=== PATIENT | male | born 1980 | race American Indian/Alaskan Native ===

== ENCOUNTER 2020-05-12 21:17 | Emergency (ER) | payer SELFPAY ==
[2020-05-12 21:26] VITALS: BP 147/97
[2020-05-12] MEDS ORDERED: SODIUM CHLORIDE 0.9% 1000 ML 2,000 ML IV ONE (21:51)
[2020-05-12 23:59] LABS: Hematocrit 42.2 % (35.5-45.6); Hemoglobin 13.8 gm/dl (11.8-15.2); Mean Corpuscular HGB Conc 33 % (32-34); Mean Corpuscular Volume 85 fl (84-94); Platelet Count 286 K/mm3 (140-440); Red Blood Count 4.95 M/mm3 (3.65-5.03); Red Cell Distribution Width 14.2 % (13.2-15.2)
[2020-05-13 00:15] LABS: Alanine Aminotransferase 141 units/L (7-56); Albumin 4.3 g/dL (3.9-5); BUN/Creatinine Ratio 13; Blood Urea Nitrogen 16 mg/dL (9-20); Calcium 9.4 mg/dL (8.4-10.2); Hemolysis Index 7
[2020-05-13 05:06] LABS: Total Cells Counted 100
[2020-05-13 05:07] LABS: Platelet Estimate Consistent w Auto
[2020-05-13] MEDS ORDERED: INSULIN REGULAR, HUMAN 100 UNIT/ML 3ML VIAL IV ONE (09:40)
[2020-05-13] MEDS ORDERED: INSULIN REGULAR, HUMAN 100 UNIT/ML 3ML VIAL SUB-Q ONE (09:50)
--- NOTE | 2020-05-13 09:55 | Emergency Department Report ---
ED General Adult HPI - General Chief complaint: Hyperglycemia Stated complaint: FLUID RETENTION Time Seen by Provider: 05/13/20 09:39 Source: patient Mode of arrival: Ambulatory Limitations: No Limitations - History of Present Illness Initial comments: This is a 40-year-old type II diabetic who has been noncompliant with his insulin for at least a month and a half. He complains essentially of the polys. She is in no distress at the time of my evaluation. He does not complain of shortness of breath. He states that he has chronic leg edema. He does not take any other medications. He does not follow-up with a physician. He has not previously been on insulin. His only medicine prior was Metformin. Patient does have a history of hypertension but denies congestive heart failure or problems with his kidneys. He is not taking any medicine for his blood pressure now. -: Gradual, month(s) Location: back (Does complain of some intermittent lower back pain) Consistency: intermittent Improves with: none Worsens with: movement Associated Symptoms: other (Chronic leg edema) Treatments Prior to Arrival: none - Related Data Previous Rx's Medication Instructions Recorded Last Taken Type Lisinopril/Hydrochlorothiazide 1 each PO DAILY #30 tablet 05/13/20 Unknown Rx [Zestoretic 10-12.5 mg Tablet] Metformin HCl [metFORMIN] 1,000 mg PO BID #60 tablet 05/13/20 Unknown Rx Allergies Allergy/AdvReac Type Severity Reaction Status Date / Time No Known Allergies Allergy Verified 05/12/20 21:25 ED Review of Systems ROS: Stated complaint: FLUID RETENTION Other details as noted in HPI Constitutional: denies: chills, fever Eyes: denies: eye pain, eye discharge, vision change ENT: denies: ear pain, throat pain Respiratory: denies: cough, shortness of breath Cardiovascular: denies: chest pain, palpitations Endocrine: see HPI, increased hunger, increased thirst, increased urine Gastrointestinal: denies: abdominal pain, nausea, diarrhea Genitourinary: denies: urgency, dysuria Musculoskeletal: other (Leg edema). denies: back pain, joint swelling, arthralgia Skin: denies: rash, lesions Neurological: denies: headache, weakness, paresthesias Psychiatric: denies: anxiety, depression Hematological/Lymphatic: denies: easy bleeding, easy bruising ED Past Medical Hx - Past Medical History Previous Medical History?: Yes Hx Hypertension: Yes Hx Diabetes: Yes - Surgical History Past Surgical History?: Yes Hx Appendectomy: Yes - Social History Smoking Status: Former Smoker Substance Use Type: None - Medications Home Medications: Home Medications Medication Instructions Recorded Confirmed Last Taken Type Lisinopril/Hydrochlorothiazide 1 each PO DAILY #30 tablet 05/13/20 Unknown Rx [Zestoretic 10-12.5 mg Tablet] Metformin HCl [metFORMIN] 1,000 mg PO BID #60 tablet 05/13/20 Unknown Rx ED Physical Exam - General Limitations: No Limitations General appearance: alert, in no apparent distress - Head Head exam: Present: atraumatic, normocephalic - Eye Eye exam: Present: normal appearance. Absent: scleral icterus - ENT ENT exam: Present: mucous membranes moist - Neck Neck exam: Present: normal inspection - Respiratory Respiratory exam: Present: normal lung sounds bilaterally. Absent: respiratory distress - Cardiovascular Cardiovascular Exam: Present: regular rate, normal rhythm. Absent: systolic murmur, diastolic murmur, rubs, gallop - GI/Abdominal GI/Abdominal exam: Present: soft, normal bowel sounds. Absent: distended, tenderness, guarding, rebound, rigid - Rectal Rectal exam: Present: deferred - Extremities Exam Extremities exam: Present: other (1-2+ pitting pretibial Edema bilaterally). Absent: calf tenderness - Back Exam Back exam: Present: normal inspection - Neurological Exam Neurological exam: Present: alert, oriented X3, CN II-XII intact. Absent: motor sensory deficit - Psychiatric Psychiatric exam: Present: normal affect, normal mood - Skin Skin exam: Present: warm, dry, intact, normal color. Absent: rash ED Course Vital Signs 05/12/20 21:21 Temperature 98.7 F Pulse Rate 97 H Respiratory 18 Rate Blood Pressure 147/97 O2 Sat by Pulse 100 Oximetry - Reevaluation(s) Reevaluation #1: Going to give the patient subcu insulin. I am going to restart his Metformin and place him on a small dose of lisinopril HCTZ. 05/13/20 09:55 Reevaluation #2: We will Accu-Chek the patient and follow his vital signs. He already has substantial leg edema and I do not think he really would benefit from saline bolus at this point. 05/13/20 09:55 ED Medical Decision Making - Lab Data Result diagrams: 05/12/20 23:25 05/12/20 23:25 Laboratory Results - last 24 hr 05/12/20 05/12/20 05/12/20 21:27 23:25 23:25 WBC 12.5 H RBC 4.95 Hgb 13.8 Hct 42.2 MCV 85 MCH 28 MCHC 33 RDW 14.2 Plt Count 286 Lymph # (Auto) Fugitive Detective Add Manual Diff Complete Total Counted 100 Seg Neuts % (Manual) 49.0 Lymphocytes % (Manual) 41.0 H Monocytes % (Manual) 7.0 Eosinophils % (Manual) 3.0 Nucleated RBC % Not Reportable Seg Neutrophils # Man 6.1 Band Neutrophils # 0.0 Lymphocytes # (Manual) 5.1 Abs React Lymphs (Man) 0.0 Monocytes # (Manual) 0.9 H Eosinophils # (Manual) 0.4 Basophils # (Manual) 0.0 Metamyelocytes # 0.0 Myelocytes # 0.0 Promyelocytes # 0.0 Blast Cells # 0.0 WBC Morphology Not Reportable Hypersegmented Neuts Not Reportable Hyposegmented Neuts Not Reportable Hypogranular Neuts Not Reportable Smudge Cells Not Reportable Toxic Granulation Not Reportable Toxic Vacuolation Not Reportable Dohle Bodies Not Reportable Pelger-Huet Anomaly Not Reportable Vick Rods Not Reportable Platelet Estimate Consistent w auto Clumped Platelets Not Reportable Plt Clumps, EDTA Not Reportable Large Platelets Not Reportable Giant Platelets Not Reportable Platelet Satelliting Not Reportable Plt Morphology Comment Not Reportable RBC Morphology Not Reportable Dimorphic RBCs Not Reportable Polychromasia Not Reportable Hypochromasia Not Reportable Poikilocytosis Not Reportable Anisocytosis Not Reportable Microcytosis Not Reportable Macrocytosis Not Reportable Spherocytes Not Reportable Pappenheimer Bodies Not Reportable Sickle Cells Not Reportable Target Cells Not Reportable Tear Drop Cells Not Reportable Ovalocytes Not Reportable Helmet Cells Not Reportable Meléndez-[place] Bodies Not Reportable [place] Rings Not Reportable [place] Cells Not Reportable Bite Cells Not Reportable Crenated Cell Not Reportable Elliptocytes Not Reportable Acanthocytes (Spur) Not Reportable Rouleaux Not Reportable Hemoglobin C Crystals Not Reportable Schistocytes Not Reportable Malaria parasites Not Reportable Adam Bodies Not Reportable Hem Pathologist Commnt No VBG pH Sodium 129 L Potassium 4.9 Chloride 93.0 L Carbon Dioxide 26 Anion Gap 15 BUN 16 Creatinine 1.2 Estimated GFR > 60 BUN/Creatinine Ratio 13 Glucose 603 H* POC Glucose 551 H Calcium 9.4 Phosphorus Magnesium Total Bilirubin 0.40 AST 126 H ALT 141 H Alkaline Phosphatase 113 Total Protein 7.5 Albumin 4.3 Albumin/Globulin Ratio 1.3 05/12/20 05/12/20 23:25 23:25 WBC RBC Hgb Hct MCV MCH MCHC RDW Plt Count Lymph # (Auto) Add Manual Diff Total Counted Seg Neuts % (Manual) Lymphocytes % (Manual) Monocytes % (Manual) Eosinophils % (Manual) Nucleated RBC % Seg Neutrophils # Man Band Neutrophils # Lymphocytes # (Manual) Abs React Lymphs (Man) Monocytes # (Manual) Eosinophils # (Manual) Basophils # (Manual) Metamyelocytes # Myelocytes # Promyelocytes # Blast Cells # WBC Morphology Hypersegmented Neuts Hyposegmented Neuts Hypogranular Neuts Smudge Cells Toxic Granulation Toxic Vacuolation Dohle Bodies Pelger-Huet Anomaly Vick Rods Platelet Estimate Clumped Platelets Plt Clumps, EDTA Large Platelets Giant Platelets Platelet Satelliting Plt Morphology Comment RBC Morphology Dimorphic RBCs Polychromasia Hypochromasia Poikilocytosis Anisocytosis Microcytosis Macrocytosis Spherocytes Pappenheimer Bodies Sickle Cells Target Cells Tear Drop Cells Ovalocytes Helmet Cells Meléndez-[place] Bodies [place] Rings [place] Cells Bite Cells Crenated Cell Elliptocytes Acanthocytes (Spur) Rouleaux Hemoglobin C Crystals Schistocytes Malaria parasites Adam Bodies Hem Pathologist Commnt VBG pH 7.353 Sodium Potassium Chloride Carbon Dioxide Anion Gap BUN Creatinine Estimated GFR BUN/Creatinine Ratio Glucose POC Glucose Calcium Phosphorus 4.20 Magnesium 1.90 Total Bilirubin AST ALT Alkaline Phosphatase Total Protein Albumin Albumin/Globulin Ratio Critical care attestation.: If time is entered above; I have spent that time in minutes in the direct care of this critically ill patient, excluding procedure time. ED Disposition Clinical Impression: Essential hypertension Hyperglycemia due to type 2 diabetes mellitus Qualifiers: Diabetes mellitus long-term insulin use: without parts counterman use Qualified Code(s): E11.65 - Type 2 diabetes mellitus with hyperglycemia Disposition: DC TO HOME OR SELFCARE Is pt being admited?: No Does the pt Need Aspirin: No Condition: Stable Instructions: Diabetes Mellitus Type 2 in Adults (ED), Hypertension (ED) Additional Instructions: Diabetic diet. Medicine for blood pressure and increase fluids. Your blood pressure will require monitoring at the clinic I have referred you to as well as further care and treatment of your diabetes. Rx Metformin and lisinopril HCTZ Prescriptions: Metformin HCl [metFORMIN] 1,000 mg PO BID #60 tablet Lisinopril/Hydrochlorothiazide [Zestoretic 10-12.5 mg Tablet] 1 each PO DAILY #30 tablet Referrals: PRIMARY CARE, [Primary Care Provider] - 3-5 Days [facility] [Provider Group] - 2-3 Days Time of Disposition: 09:56
[2020-05-13] MEDS ORDERED: INSULIN REGULAR, HUMAN 100 UNITS/1 ML ONE (10:00)
== END 2020-05-13 13:30 | disposition home or self-care (01) ==
LOC: ED 21:17
DX: I10 Essential (primary) hypertension (principal); E11.65 Type 2 diabetes mellitus with hyperglycemia; Z90.49 Acquired absence of other specified parts of digestive tract; Z87.891 Personal history of nicotine dependence; Z79.899 Other long term (current) drug therapy
CPT/HCPCS: 36415; 80053; 82805; 82962; 83735; 84100; 85007; 85025; 96372; J1815

== ENCOUNTER 2020-08-29 18:35 | Emergency (ER) | payer SELFPAY ==
[2020-08-29 20:31] VITALS: BP 122/89
[2020-08-29 21:30] LABS: Hematocrit 44.6 % (35.5-45.6); Hemoglobin 14.5 gm/dl (11.8-15.2); Mean Corpuscular HGB Conc 33 % (32-34); Mean Corpuscular Volume 84 fl (84-94); Platelet Count 275 K/mm3 (140-440); Red Blood Count 5.29 M/mm3 (3.65-5.03); Red Cell Distribution Width 14.3 % (13.2-15.2)
[2020-08-29 21:53] LABS: Alanine Aminotransferase 85 units/L (7-56); Albumin 3.9 g/dL (3.9-5); BUN/Creatinine Ratio 8; Blood Urea Nitrogen 7 mg/dL (9-20); Calcium 8.7 mg/dL (8.4-10.2); Hemolysis Index 8
[2020-08-29] MEDS ORDERED: SODIUM CHLORIDE 0.9% 1000 ML 1,000 ML IV ONE (22:00)
[2020-08-29 22:20] LABS: Total Cells Counted 100
[2020-08-29 22:21] LABS: Platelet Estimate Consistent w Auto
[2020-08-30] MEDS ORDERED: SODIUM CHLORIDE 0.9% 1000 ML 1,000 ML IV ONE (04:33)
[2020-08-30 04:54] LABS: Bilirubin,Urine NEG (Negative); Blood,Urine NEG (Negative); Color,Urine Yellow (Yellow)
--- NOTE | 2020-08-30 05:25 | Emergency Department Report ---
ED General Adult HPI - General Chief complaint: Urogenital-Male Stated complaint: CONSTANT URINATION/PAIN Time Seen by Provider: 08/29/20 20:58 Source: patient Mode of arrival: Ambulatory Limitations: No Limitations - History of Present Illness Initial comments: Patient 40-year-old -Romanian male with a history of diabetes type 2 and hypertension. Patient presents with dysuria x3 days, patient denies penile discharge no fevers no chills no nausea vomiting. Patient does endorse nonadherence to diabetes treatment. Diabetes controlled with Metformin 1000 mg p.o. twice daily patient states he did take 1 dose prior to coming to ED. Patient denies polys. Accu-Chek on arrival to ED was 489 mg/dL ,Pt denies other symptoms - Related Data Previous Rx's Medication Instructions Recorded Last Taken Type Lisinopril/Hydrochlorothiazide 1 each PO DAILY #30 tablet 05/13/20 Unknown Rx [Zestoretic 10-12.5 mg Tablet] Metformin HCl [metFORMIN] 1,000 mg PO BID #60 tablet 05/13/20 Unknown Rx Metformin HCl [metFORMIN] 1,000 mg PO BID #60 tablet 08/30/20 Unknown Rx cephALEXin [Keflex] 500 mg PO BID 7 Days #14 cap 08/30/20 Unknown Rx Allergies Allergy/AdvReac Type Severity Reaction Status Date / Time No Known Allergies Allergy Verified 05/12/20 21:25 ED Review of Systems ROS: Stated complaint: CONSTANT URINATION/PAIN Other details as noted in HPI Constitutional: denies: chills, fever Eyes: denies: eye pain, eye discharge, vision change ENT: denies: ear pain, throat pain Respiratory: denies: cough, shortness of breath, wheezing Cardiovascular: denies: chest pain, palpitations Endocrine: no symptoms reported Gastrointestinal: denies: abdominal pain, nausea, diarrhea Genitourinary: urgency, dysuria. denies: frequency, hematuria, discharge, testicular pain, testicular mass Musculoskeletal: denies: back pain, joint swelling, arthralgia Skin: denies: rash, lesions Neurological: denies: headache, weakness, paresthesias Psychiatric: denies: anxiety, depression Hematological/Lymphatic: denies: easy bleeding, easy bruising ED Past Medical Hx - Past Medical History Previous Medical History?: Yes Hx Hypertension: Yes Hx Diabetes: Yes - Surgical History Past Surgical History?: Yes Hx Appendectomy: Yes - Social History Smoking Status: Current Every Day Smoker Substance Use Type: None - Medications Home Medications: Home Medications Medication Instructions Recorded Confirmed Last Taken Type Lisinopril/Hydrochlorothiazide 1 each PO DAILY #30 tablet 05/13/20 Unknown Rx [Zestoretic 10-12.5 mg Tablet] Metformin HCl [metFORMIN] 1,000 mg PO BID #60 tablet 05/13/20 Unknown Rx Metformin HCl [metFORMIN] 1,000 mg PO BID #60 tablet 08/30/20 Unknown Rx cephALEXin [Keflex] 500 mg PO BID 7 Days #14 cap 08/30/20 Unknown Rx ED Physical Exam - General Limitations: No Limitations General appearance: alert, in no apparent distress - Head Head exam: Present: atraumatic, normocephalic - Eye Eye exam: Present: normal appearance, EOMI Pupils: Present: normal accommodation - ENT ENT exam: Present: mucous membranes moist - Neck Neck exam: Present: normal inspection, full ROM. Absent: tenderness - Respiratory Respiratory exam: Present: normal lung sounds bilaterally. Absent: respiratory distress, wheezes - Cardiovascular Cardiovascular Exam: Present: regular rate, normal rhythm, normal heart sounds. Absent: systolic murmur, diastolic murmur, rubs, gallop - GI/Abdominal GI/Abdominal exam: Present: soft, normal bowel sounds. Absent: distended, tenderness - Rectal Rectal exam: Present: deferred - Extremities Exam Extremities exam: Present: normal inspection, full ROM - Back Exam Back exam: Present: normal inspection, full ROM. Absent: tenderness, CVA t enderness (R), CVA tenderness (L) - Neurological Exam Neurological exam: Present: alert, oriented X3, CN II-XII intact, normal gait - Expanded Neurological Exam Expanded Patient oriented to: Present: person, place, time Speech: Present: fluid speech Best Eye Response (Demario): (4) open spontaneously Best Motor Response ([place]): (6) obeys commands Best Verbal Response ([place]): (5) oriented Demario Total: 15 - Psychiatric Psychiatric exam: Present: normal affect, normal mood - Skin Skin exam: Present: warm, dry, intact, normal color. Absent: rash ED Course Vital Signs 08/29/20 20:29 Temperature 98.3 F Pulse Rate 87 Respiratory 20 Rate Blood Pressure 122/89 O2 Sat by Pulse 99 Oximetry ED Medical Decision Making - Lab Data Result diagrams: 08/29/20 21:18 08/29/20 21:18 Labs 08/29/20 08/29/20 08/30/20 21:18 21:18 Unknown WBC 15.0 H RBC 5.29 H Hgb 14.5 Hct 44.6 MCV 84 MCH 27 L MCHC 33 RDW 14.3 Plt Count 275 Lymph # (Auto) Shop Worker Add Manual Diff Complete Total Counted 100 Seg Neuts % (Manual) 48.0 Lymphocytes % (Manual) 43.0 H Monocytes % (Manual) 4.0 Eosinophils % (Manual) 5.0 H Nucleated RBC % Not Reportable Seg Neutrophils # Man 7.2 Band Neutrophils # 0.0 Lymphocytes # (Manual) 6.5 H Abs React Lymphs (Man) 0.0 Monocytes # (Manual) 0.6 Eosinophils # (Manual) 0.8 H Basophils # (Manual) 0.0 Metamyelocytes # 0.0 Myelocytes # 0.0 Promyelocytes # 0.0 Blast Cells # 0.0 WBC Morphology Not Reportable Hypersegmented Neuts Not Reportable Hyposegmented Neuts Not Reportable Hypogranular Neuts Not Reportable Smudge Cells Not Reportable Toxic Granulation Not Reportable Toxic Vacuolation Not Reportable Dohle Bodies Not Reportable Pelger-Huet Anomaly Not Reportable Vick Rods Not Reportable Platelet Estimate Consistent w auto Clumped Platelets Not Reportable Plt Clumps, EDTA Not Reportable Large Platelets Not Reportable Giant Platelets Not Reportable Platelet Satelliting Not Reportable Plt Morphology Comment Not Reportable RBC Morphology Not Reportable Dimorphic RBCs Not Reportable Polychromasia Not Reportable Hypochromasia Not Reportable Poikilocytosis Not Reportable Anisocytosis Not Reportable Microcytosis Not Reportable Macrocytosis Not Reportable Spherocytes Not Reportable Pappenheimer Bodies Not Reportable Sickle Cells Not Reportable Target Cells Not Reportable Tear Drop Cells Not Reportable Ovalocytes Not Reportable Helmet Cells Not Reportable Meléndez-[place] Bodies Not Reportable [place] Rings Not Reportable [place] Cells Not Reportable Bite Cells Not Reportable Crenated Cell Not Reportable Elliptocytes Not Reportable Acanthocytes (Spur) Not Reportable Rouleaux Not Reportable Hemoglobin C Crystals Not Reportable Schistocytes Not Reportable Malaria parasites Not Reportable Adam Bodies Not Reportable Hem Pathologist Commnt No Sodium 132 L Potassium 4.2 Chloride 94.1 L Carbon Dioxide 23 Anion Gap 19 BUN 7 L Creatinine 0.9 Estimated GFR > 60 BUN/Creatinine Ratio 8 Glucose 496 H Calcium 8.7 Total Bilirubin 0.40 AST 71 H ALT 85 H Alkaline Phosphatase 113 Total Protein 7.6 Albumin 3.9 Albumin/Globulin Ratio 1.1 Urine Color Yellow Urine Turbidity Clear Urine pH 5.0 Ur Specific Palmer 1.032 H Urine Protein 30 mg/dl Urine Glucose (UA) >=500 Urine Ketones Neg Urine Blood Neg Urine Nitrite Neg Urine Bilirubin Neg Urine Urobilinogen 2.0 Ur Leukocyte Esterase Neg Urine WBC (Auto) 1.0 Urine RBC (Auto) 2.0 U Epithel Cells (Auto) < 1.0 - Medical Decision Making Patient hydrated with normal saline 1 L in ED, UA normal no ketones noted. Patient advised to take Metformin as prescribed. Follow-up with PCP in 1 to 2 days. Patient is currently alert oriented x3 amatory with steady gait with no acute distress. Critical care attestation.: If time is entered above; I have spent that time in minutes in the direct care of this critically ill patient, excluding procedure time. ED Disposition Clinical Impression: Hyperglycemia Diabetes type 2, uncontrolled Qualifiers: Glycemic state: with hyperglycemia Qualified Code(s): E11.65 - Type 2 diabetes mellitus with hyperglycemia Disposition: DC-01 TO HOME OR SELFCARE Is pt being admited?: No Does the pt Need Aspirin: No Condition: Stable Instructions: Type 2 Diabetes Mellitus, Diagnosis, Adult, Diabetes Mellitus and Nutrition, Adult, Diabetes Mellitus Type 2 in Adults (ED) Additional Instructions: take medications as prescribed, return to emergency if symptoms worsen. Prescriptions: cephALEXin [Keflex] 500 mg PO BID 7 Days #14 cap Metformin HCl [metFORMIN] 1,000 mg PO BID #60 tablet Referrals: [facility] [Provider Group] - 3-5 Days Forms: Work/School Release Form(ED) Time of Disposition: 06:16
== END 2020-08-30 06:41 | disposition home or self-care (01) ==
LOC: ED 18:35
DX: E11.65 Type 2 diabetes mellitus with hyperglycemia (principal); I10 Essential (primary) hypertension; F17.200 Nicotine dependence, unspecified, uncomplicated; Z90.49 Acquired absence of other specified parts of digestive tract; Z79.899 Other long term (current) drug therapy
CPT/HCPCS: 36415; 80053; 81001; 82962; 85007; 85025; 96360; 99283; J7030

== ENCOUNTER 2020-12-03 20:08 | Emergency (ER) | payer SELFPAY ==
[2020-12-03 22:32] VITALS: BP 177/103
--- NOTE | 2020-12-03 23:26 | Emergency Department Report ---
ED General Adult HPI - General Chief complaint: Urogenital-Male Stated complaint: FREQUENT URINATION/OUT OF DIABETES MEDICATION Source: patient Mode of arrival: Ambulatory Limitations: No Limitations - History of Present Illness Initial comments: Patient is a 40-year-old -[place]ian male with a history of morbid obesity, pbh-ljgtrjg-eqzdlxapn diabetes and hypertension who presents to the ED complaining of persistent polyuria and polydipsia and elevated blood sugar for the last 2 weeks after he ran out of his medications. Patient states that he has been taking Metformin at 1000 mg twice a day and amlodipine 10 mg daily but ran out of these medications about 2 weeks ago. Patient denies dizziness, syncope, chest pain, shortness of breath, nausea, vomiting, diarrhea, abdominal pain, headache, fever, chills, cough, hematuria, testicular pain, dysuria, back pain, lightheadedness or seizures. MD Complaint: Diabetic, ran out of his medications; polyuria and polydipsia -: Sudden, week(s) (2) Radiation: non-radiation Severity scale (0 -10): 0 Quality: dull Consistency: intermittent Improves with: none Worsens with: none Associated Symptoms: denies other symptoms. denies: confusion, chest pain, cough, diaphoresis, fever/chills, headaches, loss of appetite, malaise, nausea/vomiting, rash, seizure, shortness of breath, syncope, weakness, other Treatments Prior to Arrival: none - Related Data Previous Rx's Medication Instructions Recorded Last Taken Type Lisinopril/Hydrochlorothiazide 1 each PO DAILY #30 tablet 05/13/20 Unknown Rx [Zestoretic 10-12.5 mg Tablet] Metformin HCl [metFORMIN] 1,000 mg PO BID #60 tablet 08/30/20 Unknown Rx cephALEXin [Keflex] 500 mg PO BID 7 Days #14 cap 08/30/20 Unknown Rx Metformin HCl [metFORMIN] 1,000 mg PO BID #60 tablet 12/03/20 Unknown Rx amLODIPine 10 mg PO DAILY #30 tab 12/03/20 Unknown Rx Allergies Allergy/AdvReac Type Severity Reaction Status Date / Time No Known Allergies Allergy Verified 05/12/20 21:25 ED Review of Systems ROS: Stated complaint: FREQUENT URINATION/OUT OF DIABETES MEDICATION Other details as noted in HPI Constitutional: denies: chills, fever Eyes: denies: eye pain, eye discharge, vision change ENT: denies: ear pain, throat pain Respiratory: denies: cough, shortness of breath, wheezing Cardiovascular: denies: chest pain, palpitations Endocrine: no symptoms reported, increased thirst, increased urine Gastrointestinal: denies: abdominal pain, nausea, diarrhea Genitourinary: frequency, other (Polyuria). denies: urgency, dysuria Musculoskeletal: denies: back pain, joint swelling, arthralgia Skin: denies: rash, lesions Neurological: denies: headache, weakness, paresthesias Psychiatric: denies: anxiety, depression Hematological/Lymphatic: denies: easy bleeding, easy bruising ED Past Medical Hx - Past Medical History Previous Medical History?: Yes Hx Hypertension: Yes Hx Diabetes: Yes - Surgical History Past Surgical History?: Yes Hx Appendectomy: Yes - Social History Smoking Status: Current Every Day Smoker Substance Use Type: None - Medications Home Medications: Home Medications Medication Instructions Recorded Confirmed Last Taken Type Lisinopril/Hydrochlorothiazide 1 each PO DAILY #30 tablet 05/13/20 Unknown Rx [Zestoretic 10-12.5 mg Tablet] Metformin HCl [metFORMIN] 1,000 mg PO BID #60 tablet 08/30/20 Unknown Rx cephALEXin [Keflex] 500 mg PO BID 7 Days #14 cap 08/30/20 Unknown Rx Metformin HCl [metFORMIN] 1,000 mg PO BID #60 tablet 12/03/20 Unknown Rx amLODIPine 10 mg PO DAILY #30 tab 12/03/20 Unknown Rx ED Physical Exam - General Limitations: No Limitations General appearance: alert, in no apparent distress - Head Head exam: Present: atraumatic, normocephalic, normal inspection - Eye Eye exam: Present: normal appearance, PERRL, EOMI Pupils: Present: normal accommodation - ENT ENT exam: Present: normal exam, normal orophraynx, mucous membranes moist, TM's normal bilaterally, normal external ear exam - Neck Neck exam: Present: normal inspection, full ROM - Respiratory Respiratory exam: Present: normal lung sounds bilaterally. Absent: respiratory distress, wheezes, rales, rhonchi, stridor, chest wall tenderness, accessory muscle use, decreased breath sounds, prolonged expiratory - Cardiovascular Cardiovascular Exam: Present: regular rate, normal rhythm, normal heart sounds. Absent: systolic murmur, diastolic murmur, rubs, gallop - GI/Abdominal GI/Abdominal exam: Present: soft, normal bowel sounds. Absent: tenderness, guarding, rebound, hyperactive bowel sounds, hypoactive bowel sounds, organomegaly, mass - Extremities Exam Extremities exam: Present: normal inspection, full ROM, normal capillary refill - Back Exam Back exam: Present: normal inspection, full ROM. Absent: tenderness, CVA tenderness (R), CVA tenderness (L), muscle spasm, paraspinal tenderness, vertebral tenderness - Neurological Exam Neurological exam: Present: alert, oriented X3, CN II-XII intact, normal gait, reflexes normal - Psychiatric Psychiatric exam: Present: normal affect, normal mood, anxious - Skin Skin exam: Present: warm, dry, intact, normal color. Absent: rash ED Course Vital Signs 12/03/20 21:24 Temperature 99.5 F Pulse Rate 83 Respiratory 18 Rate Blood Pressure 177/103 O2 Sat by Pulse 95 Oximetry ED Medical Decision Making - Medical Decision Making This is a 40-year-old -[place] male with a history of morbid obesity, hre-qfaascj-xhevktfdm diabetes and hypertension who presents to the ED com plaining of persistent polyuria and polydipsia and elevated blood sugar for the last 2 weeks after he ran out of his medications. Patient states that he has been taking Metformin at 1000 mg twice a day and amlodipine 10 mg daily but ran out of these medications about 2 weeks ago. In the ED, patient is alert and oriented x3 and is not in distress. Patient ltcyz-et-mrhe blood glucose was 114 mg/dL. Patient was discharged home with a refill of his prescription medications of amlodipine 10 mg daily and Metformin 1000 mg twice a day and was advised to follow-up with his primary care physician in 7 to 10 days for reevaluation. Patient was advised return to the ED immediately if symptoms get worse. - Differential Diagnosis Type 2 diabetes, hypertension, anxiety, Critical care attestation.: If time is entered above; I have spent that time in minutes in the direct care of this critically ill patient, excluding procedure time. ED Disposition Clinical Impression: Uncontrolled stage 2 hypertension, Encounter for medication refill Type 2 diabetes mellitus Qualifiers: Diabetes mellitus mcfp insulin use: without mcfp use Diabetes mellitus complication status: without complication Qualified Code(s): E11.9 - Type 2 diabetes mellitus without complications Disposition: - TO HOME OR SELFCARE Is pt being admited?: No Does the pt Need Aspirin: No Condition: Stable Instructions: Hypertension (ED), Diabetes Mellitus Type 2 in Adults (ED), Type 2 Diabetes Mellitus, Self Care, Adult, [id number], Hypertension, Adult, Okao-vz-Khtj Additional Instructions: Take medications with food, drink plenty of fluids and follow-up with your primary care physician in 7 to 10 days for reevaluation. Return to the ED immediately if symptoms get worse. Prescriptions: amLODIPine 10 mg PO DAILY #30 tab Metformin HCl [metFORMIN] 1,000 mg PO BID #60 tablet Referrals: [facility] [Provider Group] - 7-10 days Time of Disposition: 23:28 Print Language: DIVEHI
== END 2020-12-03 23:40 | disposition home or self-care (01) ==
LOC: ED 20:08
DX: E11.65 Type 2 diabetes mellitus with hyperglycemia (principal); I10 Essential (primary) hypertension; F17.200 Nicotine dependence, unspecified, uncomplicated
CPT/HCPCS: 82962; 99282

== ENCOUNTER 2021-06-30 20:25 | Emergency (ER) | payer SELFPAY ==
[2021-06-30 22:25] VITALS: BP 167/97
--- NOTE | 2021-07-01 01:30 | Emergency Department Report ---
ED General Adult HPI - General Chief complaint: Medical Clearance Stated complaint: OUT OF MEDICINE Source: patient Mode of arrival: Ambulatory Limitations: No Limitations - History of Present Illness Initial comments: Patient is a 41-year-old -Mac[place] male with a history of hypertension and fip-ovxhgse-mszkezyhu diabetes who presents to the ED for medication refill of his blood pressure medications and diabetes medications. Patient states that he ran out of his medications about a week ago and has not taken any medications for his diabetes and blood pressure. Patient denies chest pain, shortness of breath, dizziness, syncope, fever and chills, abdominal pain, palpitations, headache or back pain. MD Complaint: MEDICATION REFILL -: Sudden, week(s) (1) Severity scale (0 -10): 0 Consistency: constant Improves with: none Worsens with: none Associated Symptoms: denies other symptoms. denies: confusion, chest pain, cough, diaphoresis, fever/chills, headaches, loss of appetite, malaise, nausea/vomiting, rash, seizure, shortness of breath, syncope, other Treatments Prior to Arrival: none - Related Data Previous Rx's Medication Instructions Recorded Last Taken Type Lisinopril/Hydrochlorothiazide 1 each PO DAILY #30 tablet 05/13/20 Unknown Rx [Zestoretic 10-12.5 mg Tablet] cephALEXin [Keflex] 500 mg PO BID 7 Days #14 cap 08/30/20 Unknown Rx Metformin HCl [metFORMIN] 1,000 mg PO BID #60 tablet 12/03/20 Unknown Rx Metformin HCl [metFORMIN] 1,000 mg PO BID #60 tablet 07/01/21 Unknown Rx amLODIPine 10 mg PO DAILY #30 tab 07/01/21 Unknown Rx Allergies Allergy/AdvReac Type Severity Reaction Status Date / Time No Known Allergies Allergy Verified 05/12/20 21:25 ED Review of Systems ROS: Stated complaint: OUT OF MEDICINE Other details as noted in HPI Constitutional: denies: chills, fever Eyes: denies: eye pain, eye discharge, vision change ENT: denies: ear pain, throat pain Respiratory: denies: cough, shortness of breath, wheezing Cardiovascular: denies: chest pain, palpitations Endocrine: no symptoms reported Gastrointestinal: denies: abdominal pain, nausea, vomiting, diarrhea Genitourinary: denies: urgency, dysuria Musculoskeletal: denies: back pain, joint swelling, arthralgia Skin: denies: rash, lesions Neurological: denies: headache, weakness, paresthesias Psychiatric: denies: anxiety, depression Hematological/Lymphatic: denies: easy bleeding, easy bruising ED Past Medical Hx - Past Medical History Previous Medical History?: Yes Hx Hypertension: Yes Hx Diabetes: Yes - Surgical History Past Surgical History?: Yes Hx Appendectomy: Yes - Social History Smoking Status: Current Every Day Smoker Substance Use Type: None - Medications Home Medications: Home Medications Medication Instructions Recorded Confirmed Last Taken Type Lisinopril/Hydrochlorothiazide 1 each PO DAILY #30 tablet 05/13/20 Unknown Rx [Zestoretic 10-12.5 mg Tablet] cephALEXin [Keflex] 500 mg PO BID 7 Days #14 cap 08/30/20 Unknown Rx Metformin HCl [metFORMIN] 1,000 mg PO BID #60 tablet 12/03/20 Unknown Rx Metformin HCl [metFORMIN] 1,000 mg PO BID #60 tablet 07/01/21 Unknown Rx amLODIPine 10 mg PO DAILY #30 tab 07/01/21 Unknown Rx ED Physical Exam - General Limitations: No Limitations General appearance: alert, in no apparent distress - Head Head exam: Present: atraumatic, normocephalic, normal inspection - Eye Eye exam: Present: normal appearance, PERRL, EOMI Pupils: Present: normal accommodation - ENT ENT exam: Present: normal exam, normal orophraynx, mucous membranes moist, TM's normal bilaterally, normal external ear exam - Neck Neck exam: Present: normal inspection, full ROM. Absent: tenderness - Respiratory Respiratory exam: Present: normal lung sounds bilaterally. Absent: respiratory distress, wheezes, rales, rhonchi, chest wall tenderness, accessory muscle use, decreased breath sounds - Cardiovascular Cardiovascular Exam: Present: regular rate, normal rhythm, normal heart sounds. Absent: systolic murmur, diastolic murmur, rubs, gallop - GI/Abdominal GI/Abdominal exam: Present: soft, normal bowel sounds. Absent: tenderness, guarding, rebound, hyperactive bowel sounds, hypoactive bowel sounds, organomegaly - Extremities Exam Extremities exam: Present: normal inspection, full ROM, normal capillary refill. Absent: tenderness - Back Exam Back exam: Present: normal inspection, full ROM. Absent: tenderness, CVA tenderness (R), muscle spasm, paraspinal tenderness, vertebral tenderness - Neurological Exam Neurological exam: Present: alert, oriented X3, CN II-XII intact, normal gait, reflexes normal - Psychiatric Psychiatric exam: Present: normal affect, normal mood, anxious - Skin Skin exam: Present: warm, dry, intact, normal color. Absent: rash ED Course Vital Signs 06/30/21 22:19 Temperature 98.5 F Pulse Rate 95 H Respiratory 18 Rate Blood Pressure 167/97 [Right] O2 Sat by Pulse 100 Oximetry ED Medical Decision Making - Medical Decision Making This is a 41-year-old -[place] male with a history of hypertension and gpm-sbsaibf-qmkitntxi diabetes who presents to the ED for medication refill of his blood pressure medications and diabetes medications. Patient states that he ran out of his medications about a week ago and has not taken any medications for his diabetes and blood pressure. In the ED, patient is alert and oriented x3 and is not in any distress. Patient was discharged home with a prescription of his Metformin and amlodipine. Patient was advised to follow-up with his primary care physician in 5 to 7 days for reevaluation or return to the ED immediately if symptoms get worse. - Differential Diagnosis Medication refill; anxiety; Critical care attestation.: If time is entered above; I have spent that time in minutes in the direct care of this critically ill patient, excluding procedure time. ED Disposition Clinical Impression: Uncontrolled stage 2 hypertension, Encounter for medication refill Disposition: HOME / SELF CARE / HOMELESS Is pt being admited?: No Does the pt Need Aspirin: No Condition: Stable Instructions: Hypertension (ED), Hypertension, Adult, Yaze-bk-Xima Additional Instructions: Take medication with food, drink plenty of fluids and follow-up with your primary care physician in 7 to 10 days for reevaluation. Return to the ED immediately if symptoms get worse. Prescriptions: amLODIPine 10 mg PO DAILY #30 tab Metformin HCl [metFORMIN] 1,000 mg PO BID #60 tablet Referrals: [facility] [Provider Group] - 7-10 days Time of Disposition: 01:30 Print Language: LIBERIAN
== END 2021-07-01 01:28 | disposition home or self-care (01) ==
LOC: EDBD → ED 20:25
DX: I10 Essential (primary) hypertension (principal); Z76.0 Encounter for issue of repeat prescription; F17.200 Nicotine dependence, unspecified, uncomplicated; Z90.89 Acquired absence of other organs
CPT/HCPCS: 99282

== ENCOUNTER 2022-01-23 01:40 | Emergency (ER) | payer OTHER ==
[2022-01-23 03:19] LABS: Bilirubin,Urine NEG (Negative); Blood,Urine SM (Negative); Color,Urine Straw (Yellow); Protein,Urine <15 mg/dL mg/dL (Negative)
[2022-01-23 03:20] LABS: RBC,Urine < 1.0 /HPF (0.0-6.0); Urobilinogen,Urine < 2 mg/dL (<2.0)
[2022-01-23] MEDS ORDERED: KETOROLAC 10 MG TAB PO ONE (08:00)
[2022-01-23] MEDS ORDERED: oxyCODONE /ACETAMINOPHEN 5-325MG TAB PO ONE (08:00)
--- NOTE | 2022-01-23 09:10 | Cat Scan Report ---
CT ABDOMEN AND PELVIS WITHOUT CONTRAST HISTORY: right flank pain COMPARISON: CT abdomen pelvis with contrast 02/08/2020 TECHNIQUE: Axial CT images were obtained through the abdomen and pelvis without IV contrast. Sagittal and coronal reformatted images. All CT scans at this location are performed using CT dose reduction for ALARA by means of automated exposure control. FINDINGS: CT ABDOMEN: Lung Bases: Clear. Liver: Stable mild hepatomegaly with fatty infiltration. No liver lesion is detected. Biliary: No significant abnormality. Spleen: No significant abnormality. Unenlarged. Pancreas: No significant abnormality. Adrenals: No significant abnormality. Kidneys: No significant abnormality. No evidence for nephrolithiasis or hydronephrosis. Lymphatics: No lymphadenopathy. Vasculature: No significant abnormality. Bowel/Peritoneum: No significant abnormality. No free air. No free fluid. Appendectomy changes are figueroa spected. CT PELVIS: : No significant abnormality. Osseous Structures: No significant abnormality. Additional Findings: None IMPRESSION: Mild hepatomegaly with steatosis. Otherwise unremarkable exam. No clear explanation for right flank p ain. No significant change since 02/08/2020. Signer Name: Steve Handy Jr, MD Signed: 01/23/2022 9:05 AM Workstation Name: [id number]
--- NOTE | 2022-01-23 09:21 | Emergency Department Report ---
ED Abdominal Pain HPI - General Chief Complaint: Urogenital-Male Stated Complaint: FREQUENT URINATION/SIDE PAIN Time Seen by Provider: 01/23/22 07:06 Source: patient Mode of arrival: Ambulatory Limitations: No Limitations - History of Present Illness Initial Comments: 41-year-old black male with a past medical history of hypertension and diabetes presents to the emergency department for evaluation of 1 week history of intermittent right-sided pain, dysuria, and urinary frequency. He denies nausea, vomiting, abdominal pain, fever, and penile discharge. He states that he has not taken any medications for his pain. MD Complaint: flank pain -: Gradual, week(s) (1) Location: R flank Radiation: none Migration to: no migration Severity scale (0 -10): 10 Quality: cramping, aching Consistency: intermittent Worsens With: other (Urination) Associated Symptoms: dysuria. denies: nausea, vomiting, diarrhea, fever, chills, hematemesis, hematochezia, melena, hematuria, anorexia, syncope - Related Data Previous Rx's Medication Instructions Recorded Last Taken Type Lisinopril/Hydrochlorothiazide 1 each PO DAILY #30 tablet 05/13/20 Unknown Rx [Zestoretic 10-12.5 mg Tablet] cephALEXin [Keflex] 500 mg PO BID 7 Days #14 cap 08/30/20 Unknown Rx Metformin HCl [metFORMIN] 1,000 mg PO BID #60 tablet 12/03/20 Unknown Rx Metformin HCl [metFORMIN] 1,000 mg PO BID #60 tablet 07/01/21 Unknown Rx amLODIPine 10 mg PO DAILY #30 tab 07/01/21 Unknown Rx Ketorolac [Toradol] 10 mg PO Q6H PRN #12 tab 01/23/22 Unknown Rx Sulfamethoxazole/Trimethoprim 1 each PO BID 5 Days #10 tab 01/23/22 Unknown Rx [Bactrim DS TAB] Allergies Allergy/AdvReac Type Severity Reaction Status Date / Time No Known Allergies Allergy Verified 05/12/20 21:25 ED Review of Systems ROS: Stated complaint: FREQUENT URINATION/SIDE PAIN Other details as noted in HPI Comment: All other systems reviewed and negative Constitutional: denies: chills, fever Respiratory: denies: shortness of breath, SOB with exertion Cardiovascular: denies: chest pain, palpitations Gastrointestinal: denies: abdominal pain, nausea, vomiting, diarrhea, hematemesis, melena, hematochezia Genitourinary: dysuria, frequency. denies: urgency, hematuria, discharge, t esticular pain, testicular mass Musculoskeletal: denies: back pain Neurological: denies: headache, weakness ED Past Medical Hx - Past Medical History Previous Medical History?: Yes Hx Hypertension: Yes Hx Diabetes: Yes - Surgical History Hx Appendectomy: Yes - Social History Smoking Status: Unknown if ever smoked Substance Use Type: None - Medications Home Medications: Home Medications Medication Instructions Recorded Confirmed Last Taken Type Lisinopril/Hydrochlorothiazide 1 each PO DAILY #30 tablet 05/13/20 Unknown Rx [Zestoretic 10-12.5 mg Tablet] cephALEXin [Keflex] 500 mg PO BID 7 Days #14 cap 08/30/20 Unknown Rx Metformin HCl [metFORMIN] 1,000 mg PO BID #60 tablet 12/03/20 Unknown Rx Metformin HCl [metFORMIN] 1,000 mg PO BID #60 tablet 07/01/21 Unknown Rx amLODIPine 10 mg PO DAILY #30 tab 07/01/21 Unknown Rx Ketorolac [Toradol] 10 mg PO Q6H PRN #12 tab 01/23/22 Unknown Rx Sulfamethoxazole/Trimethoprim 1 each PO BID 5 Days #10 tab 01/23/22 Unknown Rx [Bactrim DS TAB] ED Physical Exam - General Limitations: No Limitations General appearance: alert, in no apparent distress - Head Head exam: Present: atraumatic, normocephalic - Eye Eye exam: Absent: conjunctival injection - ENT ENT exam: Present: normal exam - Neck Neck exam: Present: normal inspection, full ROM. Absent: tenderness, lymphadenopathy - Respiratory Respiratory exam: Present: normal lung sounds bilaterally. Absent: respiratory distress, wheezes, rales, rhonchi, stridor, chest wall tenderness - Cardiovascular Cardiovascular Exam: Present: regular rate, normal heart sounds - GI/Abdominal GI/Abdominal exam: Present: soft, normal bowel sounds. Absent: distended, tenderness, guarding, rebound, rigid - exam: Present: normal inspection. Absent: urethral discharge, scrotal swelling External exam: Present: normal external exam. Absent: erythema, swelling, lesions - Extremities Exam Extremities exam: Present: normal inspection, normal capillary refill. Absent: full ROM, tenderness, pedal edema, calf tenderness - Back Exam Back exam: Present: normal inspection, CVA tenderness (R). Absent: CVA tenderness (L) - Neurological Exam Neurological exam: Present: alert, oriented X3, normal gait - Psychiatric Psychiatric exam: Present: normal affect, normal mood - Skin Skin exam: Present: warm, dry, intact, normal color ED Course Vital Signs 01/23/22 01:52 Temperature 98.1 F Pulse Rate 95 H Respiratory 20 Rate Blood Pressure 136/93 O2 Sat by Pulse 98 Oximetry ED Medical Decision Making - Radiology Data Radiology results: report reviewed, image reviewed CT abdomen and pelvis without contrast: FINDINGS: CT ABDOMEN: Lung Bases: Clear. Liver: Stable mild hepatomegaly with fatty infiltration. No liver lesion is detected. Biliary: No significant abnormality. Spleen: No significant abnormality. Unenlarged. Pancreas: No significant abnormality. Adrenals: No significant abnormality. Kidneys: No significant abnormality. No evidence for nephrolithiasis or hydronephrosis. Lymphatics: No lymphadenopathy. Vasculature: No significant abnormality. Bowel/Peritoneum: No significant abnormality. No free air. No free fluid. Appendectomy changes are suspected. CT PELVIS: : No significant abnormality. Osseous Structures: No significant abnormality. Additional Findings: None IMPRESSION: Mild hepatomegaly with steatosis. Otherwise unremarkable exam. No clear explanation for right flank pain. No significant change since 02/08/2020. - Medical Decision Making 41-year-old black male with a past medical history of hypertension and diabetes presents to the emergency department for evaluation of 1 week history of intermittent right-sided pain, dysuria, and urinary frequency. He denies nausea, vomiting, abdominal pain, fever, and penile discharge. He states that he has not taken any medications for his pain. Patient noted to have right CVA tenderness, blood in urine, dysuria, urinary frequency, and history of diabetes. Patient will be treated with short course of Bactrim and advised to follow-up with urology for further evaluation and management. CT scan positive for mild hepatomegaly with steatosis. He is advised to return to the emergency department as needed. He verbalizes understanding of and agreement with plan of care. Laboratory Results - last 24 hr 01/23/22 Unknown Urine Color Straw Urine Turbidity Clear Urine pH 6.0 Ur Specific [place] 1.029 Urine Protein <15 mg/dl Urine Glucose (UA) >=500 Urine Ketones Neg Urine Blood Sm Urine Nitrite Neg Urine Bilirubin Neg Urine Urobilinogen < 2 Ur Leukocyte Esterase Neg Urine WBC (Auto) 1.0 Urine RBC (Auto) < 1.0 Critical care attestation.: If time is entered above; I have spent that time in minutes in the direct care of this critically ill patient, excluding procedure time. ED Disposition Clinical Impression: Urinary frequency, Dysuria, Hepatomegaly, Steatosis of liver Disposition: HOME / SELF CARE / HOMELESS Is pt being admited?: No Does the pt Need Aspirin: No Condition: Stable Instructions: Urinary Frequency, Adult, Hepatomegaly, Suas-[id number], Fatty Liver Disease, Dysuria, Nonalcoholic Fatty Liver Disease Diet, Adult Additional Instructions: Take medications as prescribed. Follow-up with your primary care provider or urology or gastroenterology for further evaluation and management. Return to the emergency department as needed. Prescriptions: Sulfamethoxazole/Trimethoprim [Bactrim DS TAB] 1 each PO BID 5 Days #10 tab Ketorolac [Toradol] 10 mg PO Q6H PRN #12 tab PRN Reason: Pain Referrals: PRASHANT MORENO MD [Staff Physician] - 3-5 Days OMER CHEN MD [Staff Physician] - 3-5 Days FRANCHESKA GONSALVES MD [Staff Physician] - 3-5 Days Forms: Work/School Release Form(ED) Time of Disposition: 09:28
[2022-01-23 10:47] VITALS: BP 130/76
== END 2022-01-23 12:33 | disposition home or self-care (01) ==
LOC: ED 01:40
DX: R30.0 Dysuria (principal); R35.0 Frequency of micturition; R16.0 Hepatomegaly, not elsewhere classified; K76.89 Other specified diseases of liver; I10 Essential (primary) hypertension; E11.9 Type 2 diabetes mellitus without complications
CPT/HCPCS: 74176; 81001; 99284